=== PATIENT | female | born 1970 | race Caucasian/White ===

== ENCOUNTER 2021-12-20 09:48 | Emergency (ER) | payer MEDICARE, MEDICAID, SELFPAY ==
[2021-12-20 09:48] VITALS: BP 201/120; PULSE 73; RESP 16; TEMP 36.3; O2SAT 100; BMI 23.5
--- NOTE | 2021-12-20 10:41 | EDS_ITS ---
HPI History of Present Illness Chief Complaint: Other, Pain/Inj Informant: patient Onset/Context/Timing Onset: Month(s) (7) Context: Gradual Onset Timing: Continuous Quality: Sharp Location: Left neck Worsened by: Movement Relieved by: Nothing Narrative Narrative: Patient patient presents with neck pain that has been constant for the past 7 months. Patient states the pain is mainly on the left side of her neck. Patient describes the pain as sharp. Patient states the pain is worse with certain movements. Patient admits to some generalized weakness but denies any focal weakness. Patient states the pain radiates down into her back and up into her head at that time. Patient denies any trauma or injury. [facility] Medical History (Updated 12/20/21 @ 10:[address] Nayan Correa DO) Anxiety Asthma Bipolar 1 disorder COPD (chronic obstructive pulmonary disease) PTSD (post-traumatic stress disorder) Home Medications cyclobenzaprine 10 mg tablet 10 mg PO QHS PRN PRN Muscle Spasm #10 TABLETS 12/20/21 [Rx Last Taken Unknown] Allergy/AdvReac Type Severity Reaction Status Date / Time tramadol AdvReac Other Verified 12/20/21 09:50 Surgical History (Updated 12/20/21 @ 10:[address] Nayan Correa DO) H/O section History of hysterectomy Hx of cholecystectomy Status post ORIF of fracture of ankle Social History (Updated 12/20/21 @ 10:[address] Nayan Correa DO) Smoking Status: Current every day smoker tobacco type: cigarettes Smoking packs per day: 0.5 Smoking cigarettes per day: 10.0 ROS ROS ED Constitutional Constitutional ED: Denies chills or fever(s) Eyes Eyes: Denies blurry vision or change in vision ENT ENT ED: Denies rhinorrhea or sore throat Cardiovascular Cardiovascular: Denies chest pain or palpitations Respiratory/Chest Respiratory/Chest: Denies cough or dyspnea Gastrointestinal Gastrointestinal: Denies nausea or vomiting Genitourinary Genitourinary ED: Denies dysuria or hematuria Musculoskeletal Musculoskeletal: Reports back pain and neck pain Integumentary Denies abscess or rash Neurologic Neurologic: Reports headache(s); Denies weakness Allergic/Immunologic Allergic/Immunologic ED: Denies mouth swelling or urticaria EXAM Physical Exam Const Vital Signs: 12/20/21 09:48 Temperature 97.3 F L Temperature Source Temporal Pulse Rate 73 Respiratory Rate 16 Blood Pressure 201/120 H Blood Pressure Mean 147 Pulse Ox 100 Oxygen Delivery Method Room Air Positive well nourished and well developed General Appearance ED: well developed and NAD HEENT Reports moist mucous membranes Neck supple and no JVD Resp normal respiratory effort and clear to auscultation bilaterally Cardio regular rate and regular rhythm Back/Spine Back/Spine Narrative: There is tenderness over the left cervical paraspinal muscles. There is spasm of the left cervical paraspinal muscles. There is no midline tenderness. There is no bony crepitance or step-off. There is no edema or ecchymosis. Range of motion was slightly limited in left rotation, bilateral sidebending, and extension secondary to pain. Strength is 5/5 bilateral in the upper extrem ities. There are no sensory deficits noted. Extremity normal to inspection Neuro oriented x3, CN's II-XII intact bilaterally and no sensory deficits noted Sensorium / Orientation: alert Motor Exam: strength 5/5 throughout Psych mental status grossly normal MDM MDM MDM Narrative Medical decision making narrative: Since there is no trauma or injury and this has been ongoing for the past 7 months, I do not feel x-rays are necessary at this time. Patient was advised that this is most likely a muscular strain. Patient was given a prescription for Flexeril. Patient was instructed to use moist heat to the area. Patient was instructed to follow-up with her primary care physician in 5 to 7 days for further evaluation. Patient understood and was agreeable with the plan. All questions were answered. Discharge Plan Triage Chief Complaint: Other, Pain/Inj ED Provider: Nayan Correa Dx/Rx/DC Orders Clinical Impression: Cervical myofascial strain, Chronic neck pain Instructions: ED Neck Sprain or Strain Prescriptions: New cyclobenzaprine [cyclobenzaprine] 10 MG tablet 10 mg PO QHS PRN PRN (Reason: Muscle Spasm) Qty: 10 0RF Primary Care Provider: [facility] Britney Khan Referrals: [facility] Britney Khan [Primary Care Provider] - 5-7 Days Disposition Disposition: Home, Self Care
== END 2021-12-20 11:04 | disposition home or self-care (01) ==
LOC: ED 10:51
PROVIDERS: Emergency Provider Emergency Medicine; Visit Provider Emergency Medicine
DX: S16.1XXA Strain of muscle, fascia and tendon at neck level, initial encounter (principal); J44.9 Chronic obstructive pulmonary disease, unspecified; F31.9 Bipolar disorder, unspecified; F17.210 Nicotine dependence, cigarettes, uncomplicated; G89.29 Other chronic pain; M54.2 Cervicalgia; J45.909 Unspecified asthma, uncomplicated; F41.9 Anxiety disorder, unspecified; X58.XXXA Exposure to other specified factors, initial encounter
CPT/HCPCS: 99282

== ENCOUNTER 2021-12-26 21:23 | Emergency (ER) | payer MEDICARE, MEDICAID, SELFPAY ==
[2021-12-26 21:24] VITALS: BP 99/58; PULSE 66; RESP 14; TEMP 37.2; O2SAT 97; BMI 25.8
--- NOTE | 2021-12-26 21:41 | EKG12_ITS ---
Test Reason : cp Blood Pressure : / mmHG Vent. Rate : 068 BPM Atrial Rate : 068 BPM P-R Int : 180 ms QRS Dur : 080 ms QT Int : 422 ms P-R-T Axes : 071 065 040 degrees QTc Int : 448 ms Normal sinus rhythm Low voltage QRS Borderline ECG Confirmed by MALIKA WU MD ([id number]), business editor RACHEAL WANG ([id number]) on 12/30/2021 11:24:30 AM Referred By: Ranjit Confirmed By:MALIKA WU MD
--- NOTE | 2021-12-26 21:47 | RAD_ITS ---
STUDY: X-RAY CHEST REASON FOR EXAM: Female, 51 years old. Chest pain TECHNIQUE: Single AP portable view of the chest. COMPARISON: None. FINDINGS: The lungs are clear and expanded. There is no demonstrated pleural abnormality. Normal size heart. Normal mediastinum and inez. Normal visualized pulmonary arteries. Normal visualized aortic arch and descending thoracic aorta. Normal visualized thoracic spine. Normal visualized ribs, clavicles, and shoulders. There is no demonstrated abnormality of the visualized soft tissue structures of the upper abdomen. RAD/Chest 1 View (Portable) IMPRESSION: Normal x-ray examination of the chest. Electronically Signed: Mike Mayers MD at 22:17 EDT Reading Location ID and State: [facility] / [place] , Service support ,
[2021-12-26 21:50] LABS: Absolute Lymphocyte Count 2.53 X10^3/uL (0.83-4.51); Absolute Neutrophil Count 3.4 X10^3/uL (2.0-7.7); Basophil# 0.02 X10^3/uL; Basophil% 0.3 % (0-1); Eosinophil# 0.12 X10^3/uL; Eosinophils% 1.8 % (0-5); Hematocrit 33.6 % (37-47); Hemoglobin 11.7 g/dL (12.0-15.0); Lymphocyte # 2.53 X10^3/ul (0.83-4.51); Lymphocyte % 36.9 % (19-41); Mean Corp Hgb Conc 34.8 g/dL (32-36); Mean Corpuscular Volume 89.1 fL (81-99); Mean Platelet Vol. 10.5 fl (6.2-12.0); Monocyte% 11.7 % (0-10); NRBC Flagged by Analyzer 0 % (0-5); Neutrophil # 3.36 X10^3/uL (2.7-7.7); POSITIVE MORPHOLOGY YES; Platelet Count 295 K/mm3 (150-450); RBC Distribution Width CV 11.4 % (11.6-14.6); RBC Distribution Width SD 36.8 fl (35.1-43.9); Red Blood Count 3.77 M/mm3 (4.2-5.4); White Blood Count 6.9 K/mm3 (4.4-11.0)
--- NOTE | 2021-12-26 22:08 | EDS_ITS ---
HPI History of Present Illness Chief Complaint: Chest Pain Informant: patient Onset/Context/Timing Onset: Today Activity at onset: gradual Timing: Continuous Quality: Positive for Aching Location: Left Chest Worsened By: Nothing Relieved By: Nothing Associated Symptoms: Positive for Nausea, Vomiting, Dyspnea, Cough, Lightheadedness and Acid Reflux; Negative for Diaphoresis, Fever or Palpitations Narrative Narrative: Patient presents with chest pain that began today. Patient states she fell yesterday. Patient states she fell into a ditch and landed on her left side. Patient states the pain is on the left side of her chest today. Patient states nothing makes it better nothing makes it worse. Patient admits to some nausea and vomiting today. Patient admits to some lightheadedness. Patient denies any palpitations. Patient denies any fevers or chills. Patient has a history of COPD and states she is always short of breath and always has a cough. [facility] Medical History Anxiety Asthma Bipolar 1 disorder COPD (chronic obstructive pulmonary disease) PTSD (post-traumatic stress disorder) Home Medications cyclobenzaprine 10 mg tablet 10 mg PO QHS PRN PRN Muscle Spasm #10 TABLETS 12/20/21 [Rx Last Taken Unknown] Allergy/AdvReac Type Severity Reaction Status Date / Time tramadol AdvReac Other Verified 12/20/21 09:50 Surgical History H/O section History of hysterectomy Hx of cholecystectomy Status post ORIF of fracture of ankle Social History Smoking Status: Current every day smoker tobacco type: cigarettes ROS ROS ED Constitutional Constitutional ED: Denies chills or fever(s) Eyes Eyes: Denies blurry vision or change in vision ENT ENT ED: Denies rhinorrhea or sore throat Cardiovascular Cardiovascular: Reports chest pain; Denies palpitations Respiratory/Chest Respiratory/Chest: Reports cough and dyspnea Gastrointestinal Gastrointestinal: Reports nausea and vomiting; Denies abdominal pain Genitourinary Genitourinary ED: Denies dysuria or hematuria Musculoskeletal Musculoskeletal: Reports neck pain; Denies back pain Integumentary Denies abscess or rash Neurologic Neurologic: Denies headache(s) or weakness Allergic/Immunologic Allergic/Immunologic ED: Denies mouth swelling or urticaria EXAM Physical Exam Const Vital Signs: 12/26/21 21:24 12/26/21 21:42 12/26/21 22:51 Temperature 98.9 F Temperature Source Temporal Pulse Rate 66 63 Respiratory Rate 14 16 Blood Pressure 99/58 L 89/54 L Blood Pressure Mean 71 65 Pulse Ox 97 99 Oxygen Delivery Method Room Air Room Air Room Air 12/27/21 00:18 Temperature Temperature Source Pulse Rate 70 Respiratory Rate 21 H Blood Pressure 114/50 L Blood Pressure Mean 71 Pulse Ox 98 Oxygen Delivery Method Room Air Positive well nourished and well developed General Appearance ED: well developed and NAD HEENT Reports moist mucous membranes Chest Wall inspection of chest normal Chest: tenderness pectoral muscle left Resp normal respiratory effort and clear to auscultation bilaterally Cardio regular rate and regular rhythm GI normal to inspection, nondistended, normoactive bowel sounds, soft to palpation and non-tender Neuro oriented x3, CN's II-XII intact bilaterally and no sensory deficits noted Sensorium / Orientation: awake Motor Exam: strength 5/5 throughout Psych mental status grossly normal Skin no rashes or lesions noted Heart Score History: Slightly/Non-Suspicious ECG: Normal Age: >45 - <65 years Risk Factors: No Risk Factors Score: 1 MDM MDM MDM Narrative Medical decision making narrative: EKG was obtained. On my interpretation, it showed a normal sinus rhythm with a rate of 68. PA interval, QRS interval, and QTc intervals were all normal. [place] was normal. There are no acute ST or T wave changes. Portable 1 view chest x- ray was obtained. On my interpretation, lung devlin are clear. There is normal cardiac silhouette. Bony thorax is normal. There is no acute process noted. Radiologist also interpreted the x-ray and agrees. CBC shows a mild anemia with a hemoglobin of 11.7 and hematocrit 33.6. Basic metabolic profile showed an elevated glucose of 619. Sodium was low at 129 and chloride was 94. Anion gap was normal. Serum acetone was negative. High-sensitivity troponin was less than 3. Patient was given IV fluids. Patient was given a dose of insulin. Repeat blood sugar was 137. Patient is feeling better on reevaluation. Patient was instructed to continue to monitor her blood sugars. Patient was instructed to follow-up with a primary care physician in 2 to 3 days. Patient understood and was agreeable with the plan. All questions were answered. Lab Data Attestation: I reviewed the patient's lab results. Labs: Laboratory Results - last 24 hr 12/26/21 12/26/21 12/26/21 21:30 21:30 22:39 WBC 6.9 RBC 3.77 L Hgb 11.7 L Hct 33.6 L MCV 89.1 MCH 31.0 MCHC 34.8 RDW Std Deviation 36.8 RDW Coeff of David 11.4 L Plt Count 295 MPV 10.5 Immature Gran % (Auto) 0.300 Neut % (Auto) 49.0 Lymph % (Auto) 36.9 [place] % (Auto) 11.7 H Eos % (Auto) 1.8 Baso % (Auto) 0.3 Absolute Neuts (auto) 3.4 Absolute Lymphs (auto) 2.53 Nucleated RBC % 0 Atypical Lymphocytes 1+ Platelet Estimate ADEQUATE RBC Morphology N CHROM Anisocytosis RARE Macrocytosis RARE Sodium 129 L Potassium 4.4 Chloride 94 L Carbon Dioxide 29.0 Anion Gap 6 BUN 12 Creatinine 0.97 Estim Creat Clear Calc 68.22 Est GFR (MDRD) Af Amer 78 Est GFR (MDRD) Non-Af 64 BUN/Creatinine Ratio 12.3 Glucose 619 H* Calcium 8.9 Troponin I High Sens < 3 L Acetone Level NEGATIVE Radiography Chest X-Ray - ED: 1 View, Read by ED Physician, Read by Radiologist, Normal and No Acute Disease Diagnostic Testing: Clinical Impression(s) from Imaging Studies Chest X-Ray 12/26/21 21:47 IMPRESSION: Normal x-ray examination of the chest. Electronically Signed: Mike Mayers MD at 22:17 EDT Reading Location ID and State: [facility] / [place] , Service support , EKG Initial EKG: Attestation: I personally reviewed and interpreted this EKG as follows: Interpretation: Sinus Rhythm (68) and No Acute Injury Pattern Prior EKG tracings: not available for review Prior: No Prior Discharge Plan Triage Chief Complaint: Chest Pain ED Provider: Nayan Correa Dx/Rx/DC Orders Clinical Impression: Chest pain, Hyperglycemia Instructions: ED Chest Pain, Uncertain Cause, ED Hyperglycemia New Susp Diabetes Prescriptions: No Action cyclobenzaprine [cyclobenzaprine] 10 MG tablet 10 mg PO QHS PRN PRN (Reason: Muscle Spasm) Qty: 10 0RF Primary Care Provider: Medical Britney Khan Referrals: [facility] Britney Khan [Primary Care Provider] - 3-5 Days Disposition Disposition: Home, Self Care
[2021-12-26 22:24] LABS: Atypical Lymphocyte 1+ %; Differential Indicated SCAN CRITERIA MET
[2021-12-26 22:25] LABS: Anisocytosis RARE; Macrocytosis RARE; Platelet Estimate ADEQUATE (ADEQ); Red Cell Morphology N CHROM NORMAL (NORM C&C)
[2021-12-26] MEDS: Aspirin 81 MG TAB.CHEW 324 MG PO (22:25)
[2021-12-26 22:28] LABS: Anion Gap 6 (5-15); BUN 12 mg/dL (7-18); BUN/Creat Ratio 12.3 RATIO (10-20); Calcium,Total 8.9 mg/dL (8.5-10.1); Chloride 94 mmol/L (98-107); Creatinine, Serum 0.97 mg/dL (0.55-1.02); EST Glomerular Filtration Rate 64 mL/min (>60); Est Glom Filt Rate - Afr Amer 78 mL/min (>60); Estimated Creatinine Clearance 68.22 ml/min; Glucose 619 mg/dL (74-106); Potassium 4.4 mmol/L (3.5-5.1); Sodium Level 129 mmol/L (136-145); Troponin-I HS < 3 pg/mL (3.0-54.0)
[2021-12-26 22:51] VITALS: BP 89/54; PULSE 63; RESP 16; O2SAT 99
[2021-12-26] MEDS: 0.9% Normal Saline 1,000 ML 1000 ML IV (22:51)
[2021-12-26] MEDS: Insulin Lispro 100 UNIT/ML INSULN.PEN 20 UNIT SC (22:55)
[2021-12-27 00:18] VITALS: BP 114/50; PULSE 70; RESP 21; O2SAT 98
[2021-12-27] MEDS: 0.9% Normal Saline 1,000 ML 999 ML IV (00:18)
[2021-12-27 01:20] LABS: Bedside Glucose 137 mg/dL (74-106)
[2021-12-27 01:26] VITALS: BP 102/62; PULSE 74; RESP 17; O2SAT 97
[2021-12-27 07:17] LABS: Bedside Glucose > 500 mg/dL (74-106)
== END 2021-12-27 01:27 | disposition home or self-care (01) ==
PROVIDERS: Emergency Provider Emergency Medicine; Visit Provider Emergency Medicine
DX: R07.9 Chest pain, unspecified (principal); J44.9 Chronic obstructive pulmonary disease, unspecified; R73.9 Hyperglycemia, unspecified; D64.9 Anemia, unspecified; R11.2 Nausea with vomiting, unspecified; F17.210 Nicotine dependence, cigarettes, uncomplicated; W17.89XA Other fall from one level to another, initial encounter; Z79.899 Other long term (current) drug therapy
CPT/HCPCS: 71045; 80048; 82009; 82962; 84484; 85025; 93005; 96360; 99285; J7030; A4216

== ENCOUNTER → 2022-01-03 | Outpatient (CLI) | payer MEDICARE, MEDICAID, SELFPAY ==
[2022-01-03 10:10] LABS: Absolute Lymphocyte Count 2.07 X10^3/uL (0.83-4.51); Absolute Neutrophil Count 5.2 X10^3/uL (2.0-7.7); Basophil# 0.05 X10^3/uL; Basophil% 0.6 % (0-1); Eosinophil# 0.16 X10^3/uL; Hematocrit 38.4 % (37-47); Hemoglobin 12.9 g/dL (12.0-15.0); Lymphocyte # 2.07 X10^3/ul (0.83-4.51); Lymphocyte % 25.6 % (19-41); Mean Corp Hgb Conc 33.6 g/dL (32-36); Mean Corpuscular Hgb 30.9 pg (27.0-32.0); Mean Corpuscular Volume 92.1 fL (81-99); Mean Platelet Vol. 9.6 fl (6.2-12.0); Monocyte# 0.59 X10^3/uL; Monocyte% 7.3 % (0-10); NRBC Flagged by Analyzer 0 % (0-5); Neutrophil # 5.18 X10^3/uL (2.7-7.7); Platelet Count 380 K/mm3 (150-450); RBC Distribution Width CV 11.9 % (11.6-14.6); RBC Distribution Width SD 39.8 fl (35.1-43.9); Red Blood Count 4.17 M/mm3 (4.2-5.4); White Blood Count 8.1 K/mm3 (4.4-11.0)
[2022-01-03 10:39] LABS: Vitamin B12 1709 pg/mL (211-911); Vitamin D,25 Hydroxy 52.1 ng/mL
[2022-01-03 10:45] LABS: ALB/GLOB Ratio 0.7 RATIO (0.9-2.4); AST(SGOT) 16 U/L (15-37); Alanine Aminotransfer ALT/SGPT 35 U/L (13-56); Albumin, Serum 3.1 g/dL (3.2-5.0); Alkaline Phosphatase 99 U/L (45-117); Anion Gap 5 (5-15); BUN 16 mg/dL (7-18); BUN/Creat Ratio 21.3 RATIO (10-20); Chloride 104 mmol/L (98-107); Cholesterol 224 mg/dL (200); Creatinine, Serum 0.75 mg/dL (0.55-1.02); EST Glomerular Filtration Rate 87 mL/min (>60); Est Glom Filt Rate - Afr Amer 105 mL/min (>60); Globulin 4.5 g/dL (2.2-4.2); Glucose 257 mg/dL (74-106); High Density Lipoprotein 47 mg/dL; Potassium 4.1 mmol/L (3.5-5.1); Protein, Total 7.6 g/dL (6.4-8.2); Sodium Level 136 mmol/L (136-145); Thyroid Stim Hormone (TSH) 0.89 uIU/mL (0.358-3.74); Triglycerides 99 mg/dL; Very Low Density Lipoprotein 20 mg/dL (5-40)
[2022-01-03 11:12] LABS: Hemoglobin A1c 10.9 % (3.8-5.6)
== END | disposition home or self-care (01) ==
LOC: LAB 01-09 08:57
DX: F31.9 Bipolar disorder, unspecified (principal); R76.8 Other specified abnormal immunological findings in serum
CPT/HCPCS: 36415; 80053; 80061; 82306; 82607; 83036; 84443; 85025

== ENCOUNTER 2022-01-18 19:20 | Emergency (ER) | payer MEDICARE, MEDICAID, SELFPAY ==
[2022-01-18 19:21] VITALS: BP 114/70; PULSE 77; RESP 15; TEMP 36.4; O2SAT 98; BMI 24.5
--- NOTE | 2022-01-18 19:54 | EX.ED.DYSGE1 ---
HPI History of Present Illness Chief Complaint: Shortness of Breath Narrative Narrative: 51-year-old female presenting from the [facility] for a COVID test. Apparently she states she lives there and was told in order to go back and sleep there she would need a COVID test because somebody tested positive in the facility. She does not feel ill. She does not have a cough or cold. No fevers or chills. No body aches. PFSH PFSH Medical History Anxiety Asthma Bipolar 1 disorder COPD (chronic obstructive pulmonary disease) PTSD (post-traumatic stress disorder) Home Medications cyclobenzaprine 10 mg tablet 10 mg PO QHS PRN PRN Muscle Spasm #10 TABLETS 12/20/21 [Rx Last Taken Unknown] Allergy/AdvReac Type Severity Reaction Status Date / Time tramadol AdvReac Other Verified 01/18/22 19:25 Surgical History H/O section History of hysterectomy Hx of cholecystectomy Status post ORIF of fracture of ankle Social History Smoking Status: Current every day smoker tobacco type: cigarettes ROS ROS ED Constitutional Constitutional ED: Denies chills or fever(s) Eyes Eyes: Denies change in vision or diplopia ENT ENT ED: Denies rhinorrhea or sore throat Cardiovascular Cardiovascular: Denies chest pain or palpitations Respiratory/Chest Respiratory/Chest: Denies cough or dyspnea Gastrointestinal Gastrointestinal: Denies abdominal pain or constipation Genitourinary Genitourinary ED: Denies dysuria or hematuria Musculoskeletal Musculoskeletal: Denies arthralgias or back pain Integumentary Denies abscess or Abrasions Neurologic Neurologic: Denies headache(s) or paresthesias Psychiatric Psychiatric: Denies anxiety or depression EXAM Physical Exam Const Vital Signs: 01/18/22 19:21 01/18/22 19:36 01/18/22 20:56 Temperature 97.6 F L Temperature Source Temporal Pulse Rate 77 Respiratory Rate 15 18 Respiratory Effort Normal Non-Labored Respiratory Depth Normal Respiratory Pattern Normal Blood Pressure 114/70 Blood Pressure Mean 84 Pulse Ox 98 97 Oxygen Delivery Method Room Air Room Air Positive well nourished General Appearance ED: NAD HEENT Reports moist mucous membranes Eyes PERRL and EOMs intact bilaterally Chest Wall inspection of chest normal Resp normal respiratory effort and clear to auscultation bilaterally Cardio regular rate and regular rhythm GI normal to inspection, nondistended, normoactive bowel sounds Neuro oriented x3 and CN's II-XII intact bilaterally Sensorium / Orientation: alert Skin no rashes or lesions noted MDM MDM MDM Narrative Medical decision making narrative: Patient asymptomatic and sent to be tested for COVID because she [facility]. COVID test today was negative. She did not any medications. I do not think she did any further work-up. Patient stable for discharge. Impression: 1. Exposure to COVID-19 Discharge Plan Triage Chief Complaint: Shortness of Breath ED Provider: Dony Moreno Dx/Rx/DC Orders Instructions: ED No Diagnosis Prescriptions: No Action cyclobenzaprine [cyclobenzaprine] 10 MG tablet 10 mg PO QHS PRN PRN (Reason: Muscle Spasm) Qty: 10 0RF [facility] - Disposition Disposition: Home, Self Care Discharge Date/Time: 01/18/22 20:58
[2022-01-18 20:56] VITALS: RESP 18; O2SAT 97
== END 2022-01-18 20:58 | disposition home or self-care (01) ==
PROVIDERS: Emergency Provider Student in an Organized Health Care Education/Training Program; Visit Provider Student in an Organized Health Care Education/Training Program
DX: R06.02 Shortness of breath (principal); J44.9 Chronic obstructive pulmonary disease, unspecified; F17.210 Nicotine dependence, cigarettes, uncomplicated; Z20.822 Contact with and (suspected) exposure to COVID-19
CPT/HCPCS: 87811; 99282

== ENCOUNTER → 2022-01-22 | Outpatient (CLI) | payer MEDICARE, MEDICAID, SELFPAY ==
--- NOTE | 2022-01-22 10:48 | RAD_ITS ---
INDICATION: CERVICALGIA EXAMINATION/TECHNIQUE: X-RAY - XR Spine Cervical 2 or 3 Views COMPARISON: None. FINDINGS: VERTEBRAE: Preserved vertebral body height. No fracture. No spondylolisthesis. Preservation of the normal cervical lordosis. No significant facet arthropathy. DISCS: Disc spaces are maintained. NECK SOFT TISSUES: No prevertebral soft tissue widening. LUNG APICES: Clear. RAD/Cerv Spine 2 or 3 Views IMPRESSION: No evidence of acute fracture or spondylolisthesis. Electronically Signed: Noe Cueto DO at 0:10 EDT ,
== END | disposition home or self-care (01) ==
LOC: RAD 10:46
PROVIDERS: Referring Provider Nurse Practitioner Adult Health; Visit Provider Nurse Practitioner Adult Health
DX: M54.2 Cervicalgia (principal); R20.2 Paresthesia of skin
CPT/HCPCS: 72040

== ENCOUNTER 2022-02-04 10:38 | Emergency (ER) | payer MEDICARE, MEDICAID, SELFPAY ==
[2022-02-04] VITALS (7 sets, daily range): BP systolic 132–136; BP diastolic 68–75; PULSE 67–89; RESP 16–18; TEMP 36.3–37; O2SAT 97–99; BMI 25.5
--- NOTE | 2022-02-04 11:09 | EX.ED.VIS.PS ---
HPI HPI - Psych History of Present Illness Chief Complaint: Suicidal Informant: patient Narrative Narrative: Patient presents via police secondary to suicidal ideation. She states that she always has suicidal thoughts but normally does not act on them. Last evening, the , patient states she took a bunch of trazodone pills. She states she spent half the night vomiting. She did not seek medical treatment. She is currently homeless and states that she was recently kicked out of the [employer]. She repeatedly states that she just does not want a be here anymore. [facility] Medical History Anxiety Asthma Bipolar 1 disorder COPD (chronic obstructive pulmonary disease) PTSD (post-traumatic stress disorder) Suicide attempt Home Medications amitriptyline 25 mg tablet 25 mg PO QHS 02/04/22 [History Last Taken Unknown] ascorbic acid (vitamin C) 500 mg tablet 500 mg PO DAILY 02/04/22 [History Last Taken Unknown] biotin 5,000 mcg sublingual tablet 5,000 mcg sublingual DAILY 02/04/22 [History Last Taken Unknown] cetirizine 10 mg capsule (Allergy Relief (cetirizine)) 25 mg PO DAILY PRN allergies 02/04/22 [History Last Taken Unknown] cholecalciferol (vitamin D3) 10 mcg (400 unit) capsule (Vitamin D3) 10 mcg PO DAILY 02/04/22 [History Last Taken Unknown] cyanocobalamin (vitamin B-12) 1,000 mcg tablet (Vitamin B-12) 1,000 mcg PO DAILY 02/04/22 [History Last Taken Unknown] hydroxyzine HCl 25 mg tablet 25 mg PO 4X/DAY 02/04/22 [History Last Taken Unknown] insulin detemir U-100 100 unit/mL (3 mL) subcutaneous pen 30 unit subcut QHS 02/04/22 [History Last Taken Unknown] lisinopril 5 mg tablet 5 mg PO DAILY 02/04/22 [History Last Taken Unknown] omega-3 fatty acids 1,000 mg PO DAILY 02/04/22 [History Last Taken Unknown] prazosin 2 mg capsule 2 mg PO QHS 02/04/22 [History Last Taken Unknown] quetiapine 100 mg tablet 100 mg PO QHS 02/04/22 [History Last Taken Unknown] simethicone 125 mg capsule 125 mg PO DAILY PRN Gastric Reflux 02/04/22 [History Last Taken Unknown] trazodone 150 mg tablet 150 - 300 mg PO QHS PRN Insomnia 02/04/22 [History Last Taken Unknown] vit A 300 mcg-C 200 mg-E 27 mg-lutein 2 mg and minerals tablet (Vision Formula (with lutein)) 1 tab PO DAILY 02/04/22 [History Last Taken Unknown] vitamin E 400 unit tablet 180 mg PO DAILY 02/04/22 [History Last Taken Unknown] Allergy/AdvReac Type Severity Reaction Status Date / Time tramadol AdvReac Other Verified 02/04/22 10:40 Surgical History H/O section History of hysterectomy Hx of cholecystectomy Status post ORIF of fracture of ankle Social History Smoking Status: Current every day smoker tobacco type: cigarettes ROS ROS ED Constitutional Constitutional ED: Denies chills or fever(s) Eyes Eyes: Denies change in vision or discharge from eye(s) ENT ENT ED: Denies discharge from eye(s), rhinorrhea or sore throat Cardiovascular Cardiovascular: Denies chest pain or palpitations Respiratory/Chest Respiratory/Chest: Denies cough or dyspnea Gastrointestinal Gastrointestinal: Denies abdominal pain, diarrhea, nausea or vomiting Genitourinary Genitourinary ED: Denies difficulty urinating or dysuria Musculoskeletal Musculoskeletal: Denies back pain or extremity pain Integumentary Denies Abrasions or rash Neurologic Neurologic: Denies headache(s) or weakness Psychiatric Psychiatric: Reports depression and suicidal ideation Allergic/Immunologic Allergic/Immunologic ED: Denies lip swelling or urticaria EXAM Physical Exam Const Vital Signs: 02/04/22 10:38 02/04/22 13:43 02/04/22 14:16 Temperature 97.4 F L Temperature Source Temporal Pulse Rate 89 85 74 Respiratory Rate 18 18 16 Blood Pressure 132/68 H 136/75 H Blood Pressure Mean 89 95 Pulse Ox 98 97 99 Oxygen Delivery Method Room Air Room Air Room Air 02/04/22 15:10 Temperature Temperature Source Pulse Rate Respiratory Rate 16 Blood Pressure Blood Pressure Mean Pulse Ox Oxygen Delivery Method Positive well nourished, well developed and unkempt General Appearance ED: unkempt and well developed HEENT Reports normocephalic and head/scalp atraumatic Eyes PERRL and EOMs intact bilaterally Neck supple Chest Wall inspection of chest normal and palpation of chest normal Resp normal respiratory effort and clear to auscultation bilaterally Cardio regular rate and regular rhythm GI normal to inspection, nondistended, normoactive bowel sounds Palpation: soft Back/Spine no CVA tenderness Extremity normal to inspection Neuro oriented x3 and no sensory deficits noted Sensorium / Orientation: alert Motor Exam: strength 5/5 throughout Psych mental status grossly normal and cooperative Appearance: unkempt Mood & Affect: depressed Thought Content: suicidality Skin no rashes or lesions noted MDM MDM MDM Narrative Medical decision making narrative: Lab work for medical clearance ordered. Patient was reportedly advised that she may have been exposed to gonorrhea and chlamydia and should be tested. She denies any symptoms at this time. Lab Data Attestation: I reviewed the patient's lab results. Labs: Laboratory Results - last 24 hr 02/04/22 02/04/22 02/04/22 11:05 11:05 11:05 WBC 9.0 RBC 3.71 L Hgb 11.5 L Hct 33.3 L MCV 89.8 MCH 31.0 MCHC 34.5 RDW Std Deviation 39.3 RDW Coeff of David 12.1 Plt Count 365 MPV 9.5 Immature Gran % (Auto) 0.300 Neut % (Auto) 62.2 Lymph % (Auto) 28.2 [place] % (Auto) 6.9 Eos % (Auto) 2.1 Baso % (Auto) 0.3 Absolute Neuts (auto) 5.6 Absolute Lymphs (auto) 2.52 Nucleated RBC % 0 Sodium 139 Potassium 3.8 Chloride 105 Carbon Dioxide 30.0 Anion Gap 4 L BUN 11 Creatinine 0.58 Estim Creat Clear Calc 114.10 Est GFR (MDRD) Af Amer 143 Est GFR (MDRD) Non-Af 118 BUN/Creatinine Ratio 19.1 Glucose 171 H Calcium 9.2 Serum , Qual NEGATIVE Urine Color Urine Clarity Urine pH Ur Specific [place] Urine Protein Urine Glucose (UA) Urine Ketones Urine Occult Blood Urine Nitrite Urine Bilirubin Urine Urobilinogen Ur Leukocyte Esterase Urine RBC Urine WBC Ur Squamous Epith Cells Urine Bacteria Urine Mucus Salicylates Urine Opiates Screen Urine Methadone Screen Acetaminophen Ur Barbiturates Screen Ur Phencyclidine Scrn Ur Amphetamines Screen MDMA (Ecstasy) Screen U Benzodiazepines Scrn Urine Cocaine Screen U Cannabinoids Screen Ur Drug Screen Comment Ethyl Alcohol Chlam trachomat DNA PCR N.gonorrhoeae DNA (PCR) 02/04/22 02/04/22 02/04/22 11:09 11:09 11:09 WBC RBC Hgb Hct MCV MCH MCHC RDW Std Deviation RDW Coeff of David Plt Count MPV Immature Gran % (Auto) Neut % (Auto) Lymph % (Auto) [place] % (Auto) Eos % (Auto) Baso % (Auto) Absolute Neuts (auto) Absolute Lymphs (auto) Nucleated RBC % Sodium Potassium Chloride Carbon Dioxide Anion Gap BUN Creatinine Estim Creat Clear Calc Est GFR (MDRD) Af Amer Est GFR (MDRD) Non-Af BUN/Creatinine Ratio Glucose Calcium Serum , Qual Urine Color Yellow Urine Clarity Sl. Cloudy Urine pH 7.0 Ur Specific [place] 1.010 Urine Protein Negative Urine Glucose (UA) Normal Urine Ketones Negative Urine Occult Blood Negative Urine Nitrite Negative Urine Bilirubin Negative Urine Urobilinogen Normal Ur Leukocyte Esterase 25 H Urine RBC 0 SEEN Urine WBC 0-5 SEEN Ur Squamous Epith Cells 0-5 SEEN Urine Bacteria 2+ Urine Mucus 0 SEEN Salicylates 2.7 L Urine Opiates Screen NEGATIVE Urine Methadone Screen NEGATIVE Acetaminophen < 2.0 L Ur Barbiturates Screen NEGATIVE Ur Phencyclidine Scrn NEGATIVE Ur Amphetamines Screen POSITIVE H MDMA (Ecstasy) Screen POSITIVE H U Benzodiazepines Scrn NEGATIVE Urine Cocaine Screen NEGATIVE U Cannabinoids Screen POSITIVE H Ur Drug Screen Comment Ethyl Alcohol 5.0 Chlam trachomat DNA PCR N.gonorrhoeae DNA (PCR) 02/04/22 11:09 WBC RBC Hgb Hct MCV MCH MCHC RDW Std Deviation RDW Coeff of David Plt Count MPV Immature Gran % (Auto) Neut % (Auto) Lymph % (Auto) [place] % (Auto) Eos % (Auto) Baso % (Auto) Absolute Neuts (auto) Absolute Lymphs (auto) Nucleated RBC % Sodium Potassium Chloride Carbon Dioxide Anion Gap BUN Creatinine Estim Creat Clear Calc Est GFR (MDRD) Af Amer Est GFR (MDRD) Non-Af BUN/Creatinine Ratio Glucose Calcium Serum , Qual Urine Color Urine Clarity Urine pH Ur Specific [place] Urine Protein Urine Glucose (UA) Urine Ketones Urine Occult Blood Urine Nitrite Urine Bilirubin Urine Urobilinogen Ur Leukocyte Esterase Urine RBC Urine WBC Ur Squamous Epith Cells Urine Bacteria Urine Mucus Salicylates Urine Opiates Screen Urine Methadone Screen Acetaminophen Ur Barbiturates Screen Ur Phencyclidine Scrn Ur Amphetamines Screen MDMA (Ecstasy) Screen U Benzodiazepines Scrn Urine Cocaine Screen U Cannabinoids Screen Ur Drug Screen Comment Ethyl Alcohol Chlam trachomat DNA PCR Negative N.gonorrhoeae DNA (PCR) Negative Treatment and Re-Evaluation Narrative: Patient was given Tylenol and Flexeril for her chronic neck pain that she takes regularly. CBC is unremarkable. Chemistry studies normal. test negative. Gonorrhea and Chlamydia test are negative. Urinalysis reveals 2+ bacteria but no other sign of infection [place] 0-5 whites and negative nitrites. Tylenol and salicylate levels are negative. Tox screen is positive for amphetamines, MDMA, cannabinoids. Alcohol level is 5. COVID test is obtained and is negative. Patient has been accepted at [facility] will be transferred for further psychiatric treatment. Discharge Plan Triage Chief Complaint: Suicidal ED Provider: Chantal Hill Dx/Rx/DC Orders Clinical Impression: Suicidal ideation Prescriptions: No Action simethicone [Gas Relief Maximum Strength] 125 mg Capsule 125 mg PO DAILY PRN (Reason: Gastric Reflux) cyanocobalamin (vitamin B-12) [Vitamin B-12] 1,000 mcg Tablet 1,000 mcg PO DAILY quetiapine 100 mg Tablet 100 mg PO QHS amitriptyline 25 mg Tablet 25 mg PO QHS ascorbic acid (vitamin C) 500 mg Tablet 500 mg PO DAILY trazodone 150 mg Tablet 150 - 300 mg PO QHS PRN (Reason: Insomnia) vitamin E 400 unit Tablet 180 mg PO DAILY hydroxyzine HCl 25 mg Tablet 25 mg PO 4X/DAY lisinopril 5 mg Tablet 5 mg PO DAILY prazosin 2 mg Capsule 2 mg PO QHS cholecalciferol (vitamin D3) [Vitamin D3] 10 mcg (400 unit) Capsule 10 mcg PO DAILY [place] 3 Capsule 1,000 mg PO DAILY Levemir Flexpen 100 unit/mL (3 mL) Insulin Pen 30 unit SUBCUT QHS Vision Formula (with lutein) 300 mcg-200 mg-27 mg-2 mg Tablet 1 tab PO DAILY Rx Instructions: administer after a meal Allergy Relief (cetirizine) 10 mg Capsule 25 mg PO DAILY PRN (Reason: allergies) biotin 5,000 mcg Tablet, Sublingual 5,000 mcg SUBLINGUAL DAILY [facility]: [facility]errals: [facility] [Primary Care Provider] - Disposition Disposition: Psychiatric Hospital or Unit Discharge Location: [facility]
[2022-02-04 11:18] LABS: Mucous, Urine 0 SEEN /hpf (<or=2+); Red Blood Cells-Urine 0 SEEN /hpf (0-5)
[2022-02-04 11:20] LABS: Color, Urine Yellow (Yellow); Glucose, Dipstick Normal (Normal); Ketone-Dipstick Negative (Negative); Leukocyte Esterase-Dipstick 25 /ul (Negative); Nitrite-Dipstick Negative (Negative); Occult Blood-Urine Negative /ul (Negative); Protein-Dipstick Negative (Negative); Urine Bilirubin Dipstick Negative (Negative); Urine Clarity Sl. Cloudy (Clear); Urine Urobilinogen Normal (Normal)
[2022-02-04 11:21] LABS: Absolute Lymphocyte Count 2.52 X10^3/uL (0.83-4.51); Absolute Neutrophil Count 5.6 X10^3/uL (2.0-7.7); Basophil# 0.03 X10^3/uL; Basophil% 0.3 % (0-1); Eosinophil# 0.19 X10^3/uL; Eosinophils% 2.1 % (0-5); Hematocrit 33.3 % (37-47); Hemoglobin 11.5 g/dL (12.0-15.0); Lymphocyte # 2.52 X10^3/ul (0.83-4.51); Lymphocyte % 28.2 % (19-41); Mean Corp Hgb Conc 34.5 g/dL (32-36); Mean Corpuscular Volume 89.8 fL (81-99); Mean Platelet Vol. 9.5 fl (6.2-12.0); Monocyte# 0.62 X10^3/uL; Monocyte% 6.9 % (0-10); NRBC Flagged by Analyzer 0 % (0-5); Neutrophil # 5.56 X10^3/uL (2.7-7.7); Neutrophil % 62.2 % (47-70); Platelet Count 365 K/mm3 (150-450); RBC Distribution Width CV 12.1 % (11.6-14.6); RBC Distribution Width SD 39.3 fl (35.1-43.9); Red Blood Count 3.71 M/mm3 (4.2-5.4)
[2022-02-04 11:34] LABS: Amphetamine Urine VISTA POSITIVE (<1000 ng/mL); Barbiturate Urine VISTA NEGATIVE (< 200 ng/mL); Benzodiazepine Urine VISTA NEGATIVE (< 200 ng/mL); Cocaine Urine VISTA NEGATIVE (< 300 ng/mL); Ecstacy Urine VISTA POSITIVE (< 500 ng/mL); Methadone Urine VISTA NEGATIVE (< 300 ng/mL); PCP Urine VISTA NEGATIVE (< 25 ng/mL); THC Urine VISTA POSITIVE (< 50 ng/mL); Vista UDS pH Range 7
[2022-02-04 11:34] LABS: Anion Gap 4 (5-15); BUN 11 mg/dL (7-18); BUN/Creat Ratio 19.1 RATIO (10-20); Calcium,Total 9.2 mg/dL (8.5-10.1); Chloride 105 mmol/L (98-107); Creatinine, Serum 0.58 mg/dL (0.55-1.02); EST Glomerular Filtration Rate 118 mL/min (>60); Est Glom Filt Rate - Afr Amer 143 mL/min (>60); Glucose 171 mg/dL (74-106); Potassium 3.8 mmol/L (3.5-5.1); Sodium Level 139 mmol/L (136-145)
[2022-02-04 11:37] LABS: Bacteria 2+ /hpf (None Seen); Squamous Epithelial Cells - UA 0-5 SEEN /hpf (5-10); White Blood Cells 0-5 SEEN /hpf (0-5)
[2022-02-04 11:39] LABS: Internal QC Validated? YES +Cl - CLEAR BKGD; Pregnancy, Serum, hCG Quali. NEGATIVE Negative
[2022-02-04 11:48] LABS: Salicylate 2.7 mg/dL (2.8-20.0)
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
--- NOTE | 2022-02-04 12:00 | CM.ED ---
Addendum entered by Eliza Sosa 02/04/22 13:38: SW placed a call to [facility] to inquire about referral. [facility] states that they are still looking at pt's referral. Original Note: Social Work Note OTIS faxed referral to [facility]. Eliza Sosa ROAD SIGN INSTALLER, UNISHEAR OPERATOR
[2022-02-04 12:24] LABS: Acetaminophen (Tylenol) Level < 2.0 ug/mL (10.0-30.0)
[2022-02-04] MEDS: cycloBENZAPRine HCl 10 MG Tablet PO (14:16)
[2022-02-04] MEDS: Acetaminophen 500 MG Tablet 1000 MG PO (14:16)
--- NOTE | 2022-02-04 14:17 | CM.ED ---
Social Work Note OTIS has not heard back yet from [facility]. OTIS faxed referral to [facility]. Eliza Sosa MARKETING AND COMMUNICATIONS OFFICER, S IRON WORKER
--- NOTE | 2022-02-04 14:23 | ED.RN ---
PT RESTING, MOANING. MEDICATION GIVEN. 1:1 SITTER
--- NOTE | 2022-02-04 14:45 | CM.ED ---
Addendum entered by Eliza Sosa 02/04/22 15:37: OTIS faxed negative COVID test to [facility]. Once [facility] receives the negative COVID test, they will call this work with accepting information. Original Note: Social Work Note SW received call from Addis at [facility]. Addis with questions. OTIS answered questions. Addis states that she will need a negative COVID test for pt. OTIS spoke with RN about COVID test. Sitter with pt states she already got a COVID and it should be done. OTIS received a call from Addis at [facility] stating they can accept pending pt's negative COVID test. Addis states she will wait until pt's negative COVID test is faxed to her and then will call with accepting information. OTIS to fax negative COVID test one completed. Eliza Sosa SWITCH FOREMAN, CASING IN LINE FEEDER
[2022-02-04 15:03] LABS: Chlamydia Trachomatis by PCR Negative (Negative); Neisserai gonorrhoeae by PCR Negative (Negative); Probe Check PASS; Sample Adequacy Control PASS; Specimen Processing Control PASS
--- NOTE | 2022-02-04 17:14 | CM.ED ---
Social Work Note SW received call from Addis at [facility] stating pt has been accepted. Accepting physician is Dr. Pickering. Pt is going to [address]. RN to RN [phone]. OTIS updated pt on acceptance to [facility] and provided address as pt was asking where [facility] was located at. OTIS updated MD Hill on acceptance to [facility]. Supervisor Fur Dressing to arrange transportation. Eliza Sosa CARBON CAPTURE POWER PLANT MANAGER, DIETARY SERVICE AIDE
== END 2022-02-04 20:15 ==
PROVIDERS: Emergency Provider Emergency Medicine; Visit Provider Emergency Medicine
DX: R45.851 Suicidal ideations (principal); J44.9 Chronic obstructive pulmonary disease, unspecified; F31.9 Bipolar disorder, unspecified; R31.9 Hematuria, unspecified; G89.29 Other chronic pain; F17.210 Nicotine dependence, cigarettes, uncomplicated; J45.909 Unspecified asthma, uncomplicated; Z79.899 Other long term (current) drug therapy; M54.2 Cervicalgia
CPT/HCPCS: 36415; 80048; 80307; 80329; 81001; 82077; 84703; 85025; 87491; 87591; 87811; 99284; G0480